=== PATIENT | male | born 1980 | race Caucasian/White ===

== ENCOUNTER 2023-06-06 08:50 | Outpatient (OUT) | payer BC, SELFPAY ==
[2023-06-06 09:50] LABS: Estimated Average Glucose 91 mg/dL; Glycohemoglobin A1C 4.8 % (4.5-6.2)
[2023-06-06 10:04] LABS: Prostate Specific Antigen Scrn 0.53 ng/mL (<=4.00)
[2023-06-06 10:14] LABS: Basophils Percent Auto 0.4 % (0.2-2.0); Eosinophils Absolute Auto 0.2 10^3/uL (0.0-0.7); Eosinophils Percent Auto 3.1 % (0.9-7.0); Hematocrit 45.2 % (42.0-54.0); Hemoglobin 14.9 g/dL (14.0-18.0); Immature Granulocytes Abs Auto 0.01 10^3/uL (0.00-0.03); Immature Granulocytes Pct Auto 0.2 % (0.0-0.5); Lymphocytes Absolute Auto 1.8 10^3/uL (1.2-3.8); Lymphocytes Percent Auto 35.5 % (20.5-60.0); Mean Corpuscular Hemoglobin 29.7 pg (25.9-34.0); Mean Corpuscular Volume 90.2 fL (80.0-94.0); Mean Platelet Volume 9.8 fL (9.5-13.5); Monocytes Absolute Auto 0.5 10^3/uL (0.3-0.8); Monocytes Percent Auto 9.4 % (1.7-12.0); Neutrophils Absolute Auto 2.7 10^3/uL (1.4-6.5); Neutrophils Percent Auto 51.4 % (43.0-75.0); Platelet Count 243 10^3/uL (150-450); Red Blood Count 5.01 10^6/uL (4.70-6.10); Red Cell Distribution Width 13.3 % (11.0-15.0); White Blood Count 5.2 10^3/uL (4.0-11.0)
[2023-06-06 10:43] LABS: Alanine Aminotransferase 38 U/L (16-63); Albumin Globulin Ratio 1.4; Albumin Level 4.2 g/dL (3.4-5.0); Alkaline Phosphatase 57 U/L (46-116); Aspartate Amino Transferase 27 U/L (15-37); Bilirubin Total 1.6 mg/dL (0.2-1.0); Calcium 9.4 mg/dL (8.5-10.1); Carbon Dioxide 30.3 mmol/L (21.0-32.0); Chloride 105 mmol/L (98-107); Chol HDL Ratio 3.2; Cholesterol 215 mg/dL (<=200); Estimated GFR (African America >60 (>=60); Estimated GFR (Non-African Ame >60 (>=60); Globulin 3.1 g/dL; Glucose 89 mg/dL (74-106); HDL Cholesterol 68 mg/dL (40-60); Potassium 4.3 mmol/L (3.5-5.1); Sodium 142 mmol/L (136-145); Total Protein 7.3 g/dL (6.4-8.2); Triglycerides 31 mg/dL (<=150); VLDL CHOLESTEROL 6.2 mg/dL
[2023-06-07 12:07] LABS: Insulin 5.9 uIU/mL (2.6-24.9)
== END 2023-06-06 08:51 | disposition home or self-care (01) ==
PROVIDERS: PCP Family Medicine; Visit Provider Family Medicine
DX: Z00.00 Encounter for general adult medical examination without abnormal findings (principal); E78.5 Hyperlipidemia, unspecified; R73.09 Other abnormal glucose; Z12.5 Encounter for screening for malignant neoplasm of prostate
CPT/HCPCS: 36415; 80053; 80061; 83036; 83525; 84153; 85025; G0103

== ENCOUNTER 2025-01-21 08:53 | Outpatient (OUT) | payer BC, SELFPAY ==
--- OUTSIDE RECORDS SUMMARY | 2024-01-06 09:30 | XMS_ITS ---
Author Organization The [facility] in [place] Address [address] [place] [address] Care Team Providers Care Group Rooms Coordinator Name Role Phone Ted Matos Primary Care Provider [phone] REASON FOR VISIT wants referral to sleep study Encounters Encounter Location Date Provider Diagnosis [facility] [address] [place] [address] 01/06/2024 Ted Matos Plan Of Treatment No Information Progress Notes * Angel SALAZARDOB:1980 (44 yo M)Acc No.[id number]:01/06/2024 UNLOCKED PROGRESS NOTE Progress Note Patient: Angel KASPER :?Jude Matos ([facility]), MDDOB:1980???Age: 43 Y???Sex:MaleDate:4Phone:[phone]:[address], [place], [place] Subjective: * Chief Complaints: * 1 . Wants referral to sleep study. * Medical History: Objective: * Vitals: Assessment: Plan: * Treatment: * * Electronic signature of Ted Matos MD, [id number] on 01/21/2025 at 08:55 AM EST Sign off status: PendingVisit Status:?CANCPHONE (Cancelled Phone) * Provider: Gracy Matos MD ([facility]) Date: 1 03/07/2023 Generated for Printing/Faxing/eTransmitting on:?01/21/2025 08:55 AM EST
--- OUTSIDE RECORDS SUMMARY | 2025-01-16 10:45 | XMS_ITS ---
Author Organization [facility] in [place] Address [address] [place] [address] Care Team Providers Care Nickel Operator Name Role Phone Ted Matos Primary Care Provider [phone] Allergies No Known Allergies REASON FOR VISIT patient is co a fever last week, coughing but even before coughed all the time, sore throat last weekend, did home covid test/flu test was neg, burning in the chest, heart racing at times, no energy , issues swallowing, gasping for air while sleeping at night,, lots of joint issues, pains, is asking for an EKG Medications Medication SIG (Take, Route, Frequency, Duration) Notes Start Date End Date Status Oxaprozin 600 MG 2 tablets Orally once daily; Du ration: 90 days Not-TakingFlonase Allergy Relief 50 MCG/ACT1 spray in each nostril Nasally Once a day; Duration: 30 daysNot-Taking Social History Tobacco Use: Social History Observation Description Date Details (start date - stop date) Never Smoker NA - NA Tobacco Use/Smoking Question Answer Notes Patient is a nonsmoker AUDIT-C (Standard) Question Answer Notes Did you have a drink containing alcohol in the p ast year? No Nwqzog5EstunaujysjqttAbsqjceu Vital Signs Weight 235 lbs 01/16/2025 Height 70 in 01/16/2025 Blood pressure systolic 130 mm Hg 01/17/20 25 Blood pressure diastolic 88 mm Hg 025 BMI 33.72 kg/m2 01/16/2025 Procedures Procedure Date Ordered Date Performed Result Body Sit e EKG w Interp & Report - performed 01/16/2025 N/ASleep Study: Retitration BIPAP/CPAP01/16/2025N/A Encounters Encounter Location Date Provider Diagnosis [facility] [address] [place] [address] 01/16/2025 Ted Hoy Palpitations R00.2 ; Snoring R06.83 ; Well adult Z00.00 and Chest pain R07.9 Assessments Encounter Date Diagnosis (ICD Code) Assessment Notes Treatment Notes Treatment Clinical Notes Section Notes 01/16/2025 Palpitations (ICD-10 - R00.2) needs Stress test - + FH CAD -01/16/2025Snoring (ICD-10 - R06.83)needs sleep stucy103/18/2024Well adult (ICD-10 - Z00.00)01/16/2025hest pain (ICD-10 - R07.9) 01/16/2025Other Discussed increasing physical exercise and continuing/implementing a healthier diet. Plan Of Treatment Treatment Notes Assessment Notes Palpitations needs Stress test - + FH CAD - Snoring needs sleep stucy Other Discussed increasing physical exercise and continuing/implementing a healthier diet. Pending Test Test Name Order Date HEMOGLOBIN A1C (GLYCO) 01/16/2025 INSULIN, TOTAL 01/16/2025 LIPID PANEL (CHOL/TRIG/HDL/LDL) 01/17/20 25 URIC ACID 01/16/2025 EKG w Interp & Report - performed 2024 RHEUMATOID PANEL 01/16/2025 Sleep Study: Retitration BIPAP/CPAP 12/31 Treadmill Stress Test with Nuclear Imagi ng 01/16/2025 STOOL OCCULT BLOOD 01/16/2025 MRI Hip Arthrogram w/ Contrast Left 12/31 SED RATE WESTERGREN 01/16/2025 THYROID PANEL (T4/TSH/FREE T3) XR HIP RT 2 3V W PELVIS 01/16/2025 PSA, SCREENING 01/16/2025 CMP (COMP MET MANUEL) w/eGFR CKD-EPI 2024 CBC WITH DIFF 01/16/2025 Progress Notes * Angel NICKDOB:1980 (44 yo M)Acc No.[id number]:01/16/2025 Progress Note Patient: Lucie SYKESAngel :?Jude Matos ([facility]), MDDOB:1980???Age: 44 Y???Sex:MaleDate:01/16/2025Phone:[phone]:[address] , [place], [place]Ebtlr In:03:44 PM ESTCheck Out:04:44 PM EST Subjective: * Chief Complaints: * P atient is co a fever last week, coughing but even before coughed all the time, sore throat last weekend, did home covid test/flu test was neg, burning in the chest, heart racing at times, no energy , issues swallowing, gasping for air while sleeping at night,lots of joint issues, pains, is asking for an EKG * HPI: ???General:? Chest pain - and getting palpitation Coughing a bunch - swallow eval daytime fatigue and snoring, pauses breathing?- needs sleep study. ???Chest Pain:?The patient complains of?chest pain.?The symptoms have been present for?1-2 days .?The symptoms are?mild.?Symptomatic treatment has included?none.?Associated symptoms include?fatigue, chest tightness.? * ROS: ???General/Constitutional:?Lightheadedness?denies.?Change in appetite?denies.?Weight Change?denies.?Cardiovascular:?Irregular heartbeat?denies.?Swelling in hands/feet denies.?Respiratory:?Shortness of breath?denies.?Shortness of breath at res t?denies.?Wheezing?denies.?Neurologic:?Dizziness?denies.?Fainting?denies.?Headache denies.? * Active Problem List U07.1 COVID-19 Modified On:03/24/2023W/U Status:jbrinvzagA79.00Well adult Modified On:05/25/2023W/U Status:wfpyksryeW09.419AHand laceration Modified On:12/04/2023/U Status:ceygfkdvsV58.9GERD (gastroesophageal reflux disease) Modified On:01/17/2025/U Status:confirmed * Medical History: * Surgical History: N o Surgical History documented. * Hospitalization/Major Diagno stic Procedure: N o Hospitalization History. * Family History: F ather: alive, diagnosed with Diabetes, Hypertension, Heart Disease. M other: alive, diagnosed with Cancer, Diabetes, Hypertension, Heart Disease. B rother(s): alive. S ister(s): alive. 1 brother(s) , 2 sister(s) . 2 son(s) , 1 daughter(s) - healthy. . * Social History: ???Tobacco Use:?Tobacco Use/Smoking?Patient is a?nonsmoker ???Drug/Alcohol:?AUDIT-C (Standard)?Did you have a drink containing alcohol in the past year??No ?Points?0 ?Interpretation?Negative * Medications: N ot-Taking/PRNFlonase Allergy Relief(Fluticasone Propionate) 50 MCG/ACT Suspension 1 spray in each nostril Nasally Once a day Oxaprozin 600 MG Tablet 2 tablets Orally once daily Medication List reviewed and reconciled with the patientNot- Taking/PRN Flonase Allergy Relief(Fluticasone Propionate) 50 MCG/ACT Suspension 1 spray in each nostril Nasally Once a day Not-Taking/PRN Oxaprozin 600 MG Tablet 2 tablets Orally once daily Medication List reviewed and reconciled with the patient * Allergies: N .K.D.A.no[Allergies Verified] Objective: * Vitals: W t:235lbs, Ht: 70 in, BP:130/88mm Hg, BMI:33.72Index, Ht-cm: 177.8 cm, Wt-k.6 kg. * Examination: ???General Examination: ?GENERAL APPEARANCE:? in no acute distress, well developed,well nourished.?LUNGS:? clear to auscultation bilaterally.?CARDIO:? S1, S2 normal, no murmurs, rubs, gallops.?EXTREMITIES:? no clubbing, cyanosis, or edema.?NEUROLOGIC:? alert, oriented to time, place, & person. ??? Assessment: * Assessment: 1.?Palpitations - R00.2 (Primary)???2.?Snoring - R06.83???3.?Well adult - Z00.00???4.?Chest pain - R07.9??? Plan: * Treatment: ?LAB: RHEUMATOID PANEL ?LAB: SED RATE WESTERGREN ?Imaging: XR HIP RT 2 3V W PELVIS ?Procedure: EKG w Interp & Report - performed ?Procedure: Sleep Study: Retitration BIPAP/CPAP Notes: needs Stress test - + FH CAD - ??2.?Snoring? Notes: needs sleep stucy??3.?Well adult?LAB: HEMOGLOBIN A1C (GLYCO) ?LAB: INSULIN, TOTAL ?LAB: LIPID PANEL (CHOL/TRIG/HDL/LDL) ?LAB: URIC ACID ?LAB: STOOL OCCULT BLOOD ?LAB: THYROID PANEL (T4/TSH/FREE T3) ?LAB: PSA, SCREENING ?LAB: CMP (COMP MET MANUEL) w/eGFR CKD-EPI ?LAB: CBC WITH DIFF ?Imaging: MRI Hip Arthrogram w/ Contrast Left* hip pain - after fall - Righ t hip 4.?Chest pain?Imaging: Treadmill Stress Test with Nuclear Imaging5.?Others? Notes:Discussed increasing physical exercise and continuing/implementing a healthier diet.?? * Procedure Codes: 9 3000 EKG, WINTERP. * Preventive Medicine: ??Screenings/Counseling:?BMI ACTION PLAN?Above Normal BMI Follow-up?Dietary management education, guidance, and counseling * * Sign off status: CompletedVisit Status:?CHK (Check Out) true * Provider: Gracy Matos ([facility])MD Date: 1 03/18/2024 Generated for Printing/Faxing/eTransmitting on:?01/21/2025 08:56 AM EST History and Physical Notes * HPI (History of Present Illness) CategorySub-CategoryDetailNotesCategory NotesChest PainThe patient complains of chest painThe symptoms have been present for1-2 daysThe symptoms aremild Symptomatic treatment has includednoneAssociated symptoms includefatigue, chest tightnessGeneral Chest pain - and getting palpitation Coughing a bunch - swallow eval daytime fatigue and snoring, pauses breathing - needs sleep study Examination CategorySub-CategoryDetailNotesCategory NotesGeneral ExaminationGENERAL APPEARANCE:in no acute distress, well developed, well nourishedCARDIO:S1, S2 normal, no murmurs, rubs, gallopsLUNGS:clear to auscultation bilaterally NEUROLOGIC:alert, oriented to time, place, & personEXTREMITIES:no clubbing, cyanosis, or edema
--- OUTSIDE RECORDS SUMMARY | 2025-01-16 11:32 | XMS_ITS ---
Author Organization The [facility] in [place] Address [address] [place] [address] Care Team Providers Care Corporate Security Manager Name Role Phone Ted Matos Primary Care Provider Reason For Referral Diagnosis 1 GERD (gastroesophage al reflux disease) (K21.9) Referral Organization [facility] Referring Provider First Name Ted Referring Provider Last Name Carlo Referring Provider Speciality Family Med shereen Referred Provider Joni Mojica Referred Provider Specialty General Surg anuradha Referral Priority Routine REASON FOR VISIT look in [facility] for UGI Medications Medication SIG (Take, Route, Frequency, Duration) Notes Start Date End Date Status Pantoprazole Sodium 40 MG 1 tablet 1/2 t o 1 hour before morning meal Orally Once a day; Duration: 30 days 01/17/2025tive Problems Problem Type SNOMED Code ICD Code Onset Dates Problem Status W/U Status Risk Notes Problem Gastroesophageal ref lux disease (603182177) GERD (gastroesophageal reflux disease) (K21.9) Activeconfirmed Encounters Encounter Location Date Provider Diagnosis [facility] [address] [place] [address] 01/16/2025 Ted Matos GERD (gastroesophage al reflux disease) K21.9 Assessments Encounter Date Diagnosis (ICD Code) Assessment Notes Treatment Notes Treatment Clinical Notes Section Notes 01/16/2025 GERD (gastroesophageal reflux di sease) (ICD-10 - K21.9) Plan Of Treatment Medication Medication Name Sig Start Date Stop Date Notes Pantoprazole Sodium 40 MG 1 tablet 1/2 t o 1 hour before morning meal Orally Once a day; Duration: 30 days 01/17/2025 Referrals Referral Date Details 01/17/2025 01/17/2025, Joni Mojica Progress Notes * Angel SALAZARDOB:1980 (44 yo M)Acc No.[id number]:01/16/2025 Patient:?Angel SALAZAR :1980???Age:44 Y???Sex:MalePhone:[phone] Address:[address] [place] [address], [address] * Refills Start Pantoprazole Sodium Tablet Delayed Release, 40 MG, Orally, 30 Tablet, 1 tablet 1/2 to 1 hour before morning meal, Once a day, 30 days, Refills=11 Subjective: * Chief Complaints: * l ook in [facility] for UGI * Medical History: * Surgical History: * Hospitalization/Major Diagno stic Procedure: * Medications: Objective: * Vitals: * Physical Examination: ??? Assessment: * Assessment: 1.?GERD (gastroesophageal reflux disease) - K21.9 (Primary)??? Plan: * Treatment: ? Referral To:Joni Mojica??General Surgery ?Reason: 2.?Others? Start Pantoprazole Sodium Tablet Delayed Release, 40 MG, 1 tablet 1/2 to 1 hour before morning meal, Orally, Once a day, 30 days, 30 Tablet, Refills 11.?? * Procedure Codes: * true * Date:?Generated for Printing/Faxing/eTransmitting on:?01/21/2025 08:55 AM EST Consultation Request Notes Referral Date Referring Provider Referred Provider Not ariadna 01/17/2025 Ted Matos Michael
--- OUTSIDE RECORDS SUMMARY | 2025-01-21 08:56 | XMS_ITS | Patient Health Record ---
Author Organization The [facility] in [place] Address [address] [place] [address] Care Team Providers Care Chief General [facility] Name Role Phone Carlo Ted Primary Care Provider Allergies No Known Allergies Reason For Referral Diagnosis 1 GERD (gastroesophage al reflux disease) (K21.9) Referral Organization [facility] Referring Provider First Name Ted Referring Provider Last Name Carlo Referring Provider Speciality Family Med shereen Referred Provider Joni Mojica Referred Provider Specialty General Surg anuradha Referral Priority Routine Medications Medication SIG (Take, Route, Frequency, Duration) Notes Start Date End Date Status Pantoprazole Sodium 40 MG 1 tablet 1/2 t o 1 hour before morning meal Orally Once a day; Duration: 30 days 5ActiveOxaprozin 600 MG2 tablets Orally once daily; Duration: 90 days Not-TakingFlonase Allergy Relief 50 MCG/ACT1 spray in each nostril Nasally Once a day; Duration: 30 daysNot-Taking Social History Tobacco Use: Social History Observation Description Date Details (start date - stop date) Never Smoker NA - NA Tobacco Use/Smoking Question Answer Notes Patient is a nonsmoker Alcohol Screen (Audit-C) Question Answer Notes Did you have a drink containing alcohol in the p ast year? Yes How many drinks did you have on a typical day when you were drinking in the past year?3 or 4 drinks (1 point)How often did you have a drink containing alcohol in the past year?Less than monthly (1 point)Sfhsnl9ViwyovcudggyijIqjofgzsSCKGL-G (Standard) Question Answer Notes Did you have a drink containing alcohol in the p ast year? No Kyuydh3VpptatznoowvzkBrmjmadr Problems Problem Type SNOMED Code ICD Code Onset Dates Problem Status W/U Status Risk Notes Problem Gastroesophageal ref lux disease (861150291) GERD (gastroesophageal reflux disease) (K21.9) ActiveconfirmedProblemWell adult (833506441)Well adult (Z00.00)Activeconfirmed ProblemHand laceration (S61.419A)ActiveconfirmedProblemCOVID-19 (990732863) COVID-19 (U07.1)Activeconfirmed Vital Signs Blood pressure diastolic 88 mm Hg 01/16/2025 Fimccb23 in01/16/2025lood pressure mm Hg01/16/20259992Doeoci101 lbs 01/16/2025BMI33.72 kg/m201/16/2025 Procedures Procedure Date Ordered Date Performed Result Body Sit e EKG w Interp & Report - performed 01/16/2025 N/ASleep Study: Retitration BIPAP/CPAP01/16/2025N/A Encounters Encounter Location Date Provider Diagnosis [facility] [address] [place] [address] 01/16/2025 Ted Matos GERD (gastroesophage al reflux disease) K21.9 [facility] [address] [place] [address] 01/17/2025 Ted Hoy [facility] [place] [address] 01/18/2025[facility] [place] [address]/17/2025Doug HoyPalpitations R00.2 ; Snoring R06.83 ; Well adult Z00.00 and Chest pain R07.9 Assessments Encounter Date Diagnosis (ICD Code) Assessment Notes Treatment Notes Treatment Clinical Notes Section Notes 01/16/2025 Palpitations (ICD-10 - R00.2) needs Stress test - + FH CAD -01/16/2025Snoring (ICD-10 - R06.83)needs sleep stucy103/18/2024Well adult (ICD-10 - Z00.00)01/16/2025GERD (gastroesophageal reflux disease) (ICD-10 - K21.9)5Chest pain (ICD-10 - R07.9)01/16/2025 Other Discussed increasing physical exercise and continuing/implementing a healthier diet. Plan Of Treatment Pending Test Test Name Order Date CMP (COMPLETE METABOLIC PANEL) 4 HEMOGLOBIN A1C (GLYCO) 05/25/2023 HEMOGLOBIN A1C (GLYCO) 01/16/2025 INSULIN, TOTAL 01/16/2025 INSULIN, TOTAL 05/25/2023 LIPID PANEL (CHOL/TRIG/HDL/LDL) 01/17/20 LIPID PANEL (CHOL/TRIG/HDL/LDL) 05/25/19 24 CBC WITH DIFF 05/25/2023 PSA, PROSTATE-SPECIFIC ANTIGEN 4 URIC ACID 01/16/2025 EKG w Interp & [...] w/eGFR CKD-EPI 2024 CBC WITH DIFF 01/16/2025 Insurance Providers Payer Name Payer Address Payer Phone Subscriber Number Group Number Insured Name Patient Relationship to Insured Coverage Start Date Coverage End Date YESI LEWIS [address] [place] [address] [id number] Chula Salazar - patient is the insured
--- OUTSIDE RECORDS SUMMARY | 2025-01-21 08:56 | XMS_ITS | Clinical Summary ---
Author Organization [facility] Address [address], [address] [place] [address] Care Team Providers Care Gun Stocker Name Role Phone Jude Matos MD Primary Care Provider [phone] Allergies No known active allergies Immunizations ImmunizationAdministration DatesNext DueTDaP, ADACEL (age 10y-64y), BOOSTRIX (age 10y+), IM, 0.5mL11/26/2023 Social History Tobacco UseTypesPacks/DayYears UsedDateSmoking Tobacco: NeverSmokeless Tobacco: Never Tobacco Cessation:Counseling Given: Not Answered Alcohol UseStandard Drinks/WeekCommentsNever0 (1 standard drink = 0.6 oz pure alcohol)Sex and Gender InformationValueDate RecordedSex Assigned at BirthNot on fileLegal QkrJncw0804/11/2012 5:12 PM ESTGender IdentityNot on fileSexual OrientationNot on file Last Filed Vital Signs Vital SignReadingTime TakenCommentsBlood Yvbtnkyd045/9609 11:33 AM EDT Aatah541311/26/2023 11:33 AM HSGWydcgkwmzvo44.2 ??C (97.2 ??F)11/26/2023 11:33 AM EDTRespiratory Qbzj887211/26/2023 11:33 AM EDTOxygen Ltssrrmbln852%11/26/2023 11:33 AM EDTInhaled Oxygen Concentration--Awxbsc06.5 kg (215 lb)11/26/2023 11:33 AM XAXRpmido908.8 cm (5' 10 )11/26/2023 11:33 AM EDTBody Mass Index30.85 11/26/2023 11:33 AM EDT Plan of Treatment Health MaintenanceDue DateLast DoneCommentsFlu vaccine (#1)09/30/2024OVID-19 Vaccine (1 - 2023- season)2024DTaP/Tdap/Td vaccine (2 - Td or Tdap) olio vaccineAged OutNo longer eligible based on patient's age to complete this topic Insurance Care Teams Team MemberRelationshipSpecialtyStart Date Jude Matos MD [address] [place] [address] PCP - GeneralFamily Medicine11/26/23
--- OUTSIDE RECORDS SUMMARY | 2025-01-21 08:56 | XMS_ITS | Clinical Summary ---
Author Organization [facility] Address [address] [place] [address] Care Team Providers Care Manager Cost Name Role Phone Jude Matos MD Primary Care Provider [phone] Allergies No known active allergies Medications MedicationSigDispense QuantityRefillsLast FilledStart DateEnd DateStatus oxaprozin (Daypro) 600 MG tablet Take 1,200 mg by mouth DailyActive Family History Medical HistoryRelationNameCommentsHeart diseaseFatherCancerMotherBreastDiabetes MotherHeart diseaseMotherStrokePaternal GrandmotherRelationNameStatusComments FatherMotherPaternal Grandmother Social History Tobacco UseTypesPacks/DayYears UsedDateSmoking Tobacco: NeverSmokeless Tobacco: Never Tobacco Cessation:Counseling Given: Not Answered Alcohol UseStandard Drinks/WeekCommentsYes0 (1 standard drink = 0.6 oz pure alcohol)Sex and Gender InformationValueDate RecordedSex Assigned at BirthNot on fileLegal AviOfnn7805/14/2022 6:52 PM EDTGender IdentityNot on fileSexual OrientationNot on file Last Filed Vital Signs Vital SignReadingTime TakenCommentsBlood Pressure--Pulse--Temperature-- Respiratory Rate--Oxygen Saturation--Inhaled Oxygen Concentration--Doeehg68.5 kg (215 lb)02/08/2024 4:12 PM LDIAoasez649.8 cm (5' 10 )02/08/2024 4:12 PM ESTBody Mass Index30.8502/08/2024 4:12 PM EST Plan of Treatment Not on file Insurance * Guarantor: Angel Salazar TypeRelation to PatientDate of PhoneBilling AddressPersonal/QfursmTeuh12/07/[address] [address] Care Teams Team MemberRelationshipSpecialtyStart Date Jude Matos MD PCP - GeneralFamily Medicine09/22/23
[2025-01-21 09:56] LABS: Hematocrit 46.0 % (42.0-54.0); Hemoglobin 15.8 g/dL (14.0-18.0); Immature Granulocytes Abs Auto 0.03 10^3/uL (0.00-0.03); Immature Granulocytes Pct Auto 0.6 % (0.0-0.5); Lymphocytes Absolute Auto 1.6 10^3/uL (1.2-3.8); Mean Corpuscular HGB Conc 34.3 g/dL (29.9-35.2); Mean Corpuscular Hemoglobin 31.1 pg (25.9-34.0); Mean Corpuscular Volume 90.6 fL (80.0-94.0); Platelet Count 244 10^3/uL (150-450); Red Blood Count 5.08 10^6/uL (4.70-6.10); White Blood Count 5.4 10^3/uL (4.0-11.0)
[2025-01-21 11:16] LABS: Alanine Aminotransferase 44 U/L (16-63); Albumin Globulin Ratio 1.2; Albumin Level 3.9 g/dL (3.4-5.0); Alkaline Phosphatase 67 U/L (46-116); Anion Gap 10.9; Aspartate Amino Transferase 20 U/L (15-37); Blood Urea Nitrogen 21.0 mg/dL (7.0-18.0); Calcium 9.0 mg/dL (8.5-10.1); Carbon Dioxide 29.9 mmol/L (21.0-32.0); Chloride 105 mmol/L (98-107); Cholesterol 222 mg/dL (<=200); Estimated GFR (African America >60 (>=60 mL/min/1.73m^2); Estimated GFR (Non-African Ame >60 (>=60 mL/min/1.73m^2); Free T3 3.06 pg/mL (2.18-3.98); Globulin 3.3 g/dL; Glucose 94 mg/dL (74-106); HDL Cholesterol 66 mg/dL (40-60); Potassium 4.8 mmol/L (3.5-5.1); Sodium 141 mmol/L (136-145); Thyroid Stimulating Hormone 3.862 uIU/mL (0.358-3.740); Total Protein 7.2 g/dL (6.4-8.2); Triglycerides 38 mg/dL (<=150); Uric Acid 6.0 mg/dL (3.5-7.2); VLDL CHOLESTEROL 7.6 mg/dL
[2025-01-24 16:10] LABS: Antinuclear Antibodies, IFA Positive (.)
== END 2025-01-21 08:54 | disposition home or self-care (01) ==
LOC: LAB 08:53
PROVIDERS: PCP Family Medicine; Visit Provider Family Medicine
DX: Z00.00 Encounter for general adult medical examination without abnormal findings (principal); Z12.5 Encounter for screening for malignant neoplasm of prostate; R00.2 Palpitations
CPT/HCPCS: 36415; 80053; 80061; 83036; 83525; 84436; 84443; 84481; 84550; 85025; 85652; 86038; 86060; 86140; 86431; G0103

== ENCOUNTER 2025-03-01 09:02 | Outpatient (OUT) | payer BC, SELFPAY ==
--- OUTSIDE RECORDS SUMMARY | 2024-01-06 09:30 | XMS_ITS ---
Author Organization The [facility] in [place] Address [address] [place] [address] Care Team Providers Care Integration Manager Name Role Phone Ted Matos Primary Care Provider REASON FOR VISIT wants referral to sleep study Encounters Encounter Location Date Provider Diagnosis [facility] [address] [place] [address] 01/06/2024 Ted Matos Plan Of Treatment Next Appt Details Provider Name:Gab White Rafaela ntz, 03/07/2025 01:00:00 PM, [address], [address], [place], [address], Progress Notes * Angel NICKDOB:1980 (44 yo M)Acc No.[id number]:01/06/2024 UNLOCKED PROGRESS NOTE Progress Note Patient: Angel KASPER :?Jude Matos ([facility]), MDDOB:1980???Age: 43 Y???Sex:MaleDate:4Phone:[phone]:[address], [place], [place] Subjective: * Chief Complaints: * 1 . Wants referral to sleep study. * Medical History: Objective: * Vitals: Assessment: Plan: * Treatment: * * Electronic signature of Ted Matos MD, [id number] on 03/01/2025 at 09:04 AM EST Sign off status: PendingVisit Status:?CANCPHONE (Cancelled Phone) * Provider: Gracy Matos ([facility])MD Date: 1 03/07/2023 Generated for Printing/Faxing/eTransmitting on:?03/01/2025 09:04 AM EST
--- OUTSIDE RECORDS SUMMARY | 2025-02-20 11:23 | XMS_ITS | Continuity of Care Document ---
Author Organization [facility] Address [address] [place] [address] Phone Care Team Providers Care Clinical Consultant Name Role Phone Tomasz Mendieta APRN Attending Provider Jude Matos MD Primary Care Provider [phone] Care Teams Patient Care Team Team Status: Active Member Role/Relationship Status Dates Jude Matos MD Primary Care Provider Active Patient Care Team Team Status: Inactive Member Role/Relationship Status Dates Tomasz Mendieta APRN Attending Provider Active Start: February 20, 2025 End: February 20, 2025DoRupesh Rushing Care ProviderActiveStart: February 20, 2025 End: February 20, 2025 Chief Complaint and Reason for Visit Chief Complaint Admit Date trouble swallowing February 20, 2025 3:30pm Reason for Visit Admit Date Cough February 20, 2025 3:30pm Dysphagia February 20, 2025 3:30pm Allergies, Adverse Reactions, Alerts Allergen Type Severity Reaction Last Updated Verified Status No Known Allergies Allergy Unknown February 20, 2025 3:46pmYesActive Social History Smoking Status Unknown if ever smoked Observation Status Observation Response Date of Response Legal Sex Male (finding) Sex Assigned At [facility] 1980 Problems Active Problems Problem Diagnosis/Recorded Date Onset Date Stat us Cough February 20, 2025 3:45pm Unknown A ctive Dysphagia February 20, 2025 3:42pm Unknown A ctive Medications Medication Status Dose Units Route Directions Qty Days Refills S tart Date Stop Date End Date Reason(s) Instructions Adherence Tamsulosin (Flomax) 0.4 mg capsule Discontinued 0.4 MG PO Daily February 20, 2025 12:00amDecember 2024 4:09pmFluticasone Propionate 50 mcg/actuation spray,ltlohxaipoDmssvz8NTDXVLBCTOCTHGAYnrjzJqbyoamo 22nd, 2025 12:00amadminister into each nostrilUnknown Vital Signs Vital Reading Result Reference Range Collection Date/Time Height 70 [in_i] February 20, 2025 3:29cvMghyuc01.79 kgDeceer 2024 3:47pmHeart Rate72 /nvc88-891KzaiknhqFebruary 20, 2025 3:47pmBP Ntyawidq378 mm[Hg]100-140Dece2024 3:47pmBP Fqdzyiadq71 mm[Hg]60-100Deceer 2024 3:47pmBMI (Body Mass Index)31.5 kg/u9NzwpcisiFebruary 20, 2025 3:47pm Advance Directives Advance Directive Response Recorded Date/ Time Advance Directives No January 3:45pm Insurance Providers Guarantor Angel Salazar Address [address] [address]Tbseveu Info.Home Phone: Coverage Status Update:2025 Payer Group Member ID Coverage Type Subscriber Relationship to Subscriber Effective Date Expiration Date Yan KWON [id number] R Hemvamsi Id: [id number] [id number] [facility] [address] Home Phone: Self Encounters Encounter Location(s) Arrival/Admit Date Discharge/Departure Date Discharge/Departure Disposition Provider(s) Departed Physician/ Provider Office Visit -[facility] February 20, 2025 3:30pm February 20, 2025 4:21pm Discharged to home care or self care (routine discharge) Katie Tamez CERTIFIED NOVELL ADMINISTRATOR Recent Diagnosis Onset Date Admit Date Cough Unknown February 20, 2 025 3:30pm Dysphagia Unknown February 20 2 025 3:30pm Assessments Diagnosis Onset Date Resolution Status Admit Date Cough acuteDece2024 3:30pmDysphagiaacuteDecember 2024 3:30pm
--- OUTSIDE RECORDS SUMMARY | 2025-02-27 03:28 | XMS_ITS ---
Author Organization [facility] [place] Address [address] [place] [address] Care Team Providers Care Music Assistant Name Role Phone Ted Matos Primary Care Provider REASON FOR VISIT Referral/labs Problems Problem Type SNOMED Code ICD Code Onset Dates Problem Status W/U Status Risk Notes Problem Hypercalcemia (52856182) Hypercalcemia (E 83.52) Activeconfirmed Encounters Encounter Location Date Provider Diagnosis [facility] [address] [facility] [place] [address] 02/27/2025 Ted Matos Hypercalcemia E83.5 2 and Thyroid lump E07.9 Assessments Encounter Date Diagnosis (ICD Code) Assessment Notes Treatment Notes Treatment Clinical Notes Section Notes 02/27/2025 Hypercalcemia (ICD-10 - E83.52) 02/27/2025Thyroid lump (ICD-10 - E07.9) Plan Of Treatment Pending Test Test Name Order Date CALCIUM, IONIZED 02/27/2025 US THYROID 02/27/2025 Next Appt Details Provider Name:Gab navarro, 03/07/2025 01:00:00 PM, [address], [place], [address], Progress Notes * PARKAngelDOB:1980 (44 yo M)Acc No.[id number]:02/27/2025 Patient:?Angel NICK :1980???Age:44 Y???Sex:MalePhone:[phone] Address:[address] [place] [address], [address] Subjective: * Chief Complaints: * R eferral/labs * Medical History: * Surgical History: * Hospitalization/Major Diagno stic Procedure: * Medications: Objective: * Vitals: * Physical Examination: ??? Assessment: * Assessment: 1.?Hypercalcemia - E83.52 (Primary)???2.?Thyroid lump - E07.9?? Plan: * Treatment: ?LAB: CALCIUM, IONIZED2.?Thyroid lump?Imaging: US THYROID * Procedure Codes: * true * Date:?Generated for Printing/Faxing/eTransmitting on:?03/01/2025 09:04 AM EST
--- OUTSIDE RECORDS SUMMARY | 2025-03-01 09:05 | XMS_ITS | Patient Health Record ---
Author Organization [facility] [place] Address [address] [place] [address] Care Team Providers Care Content Strategy Lead Name Role Phone Raul Matos Primary Care Provider Allergies No Known Allergies Results Component Value Reference Range Notes Erythrocyte Sedimentation Ra te Reviewed date:01/21/2025 08:09:42 PM Interpretation: Performing Lab: Notes/Report: [facility] , Erythrocyte Sedimentation Rate 4 <=15 mm/hr Performing Lab:see noteML - [facility] LBCBC AUTO DIFF Reviewed date:01/21/2025 08:09:42 PM Interpretation: Performing Lab: Notes/Report: [facility] ,White Blood Count5.44.0-11.0 10 3/uLRed Blood Count5.084.70-6.10 10 6/uL Zadjdpaxil99.814.0-18.0 g/zRHawfewbuyo71.042.0-54.0 %Mean Corpuscular Ymlgzw35.6 80.0-94.0 fLMean Corpuscular Tjkmformta31.125.9-34.0 pgMean Corpuscular HGB Conc 34.329.9-35.2 g/dLRed Cell Distribution Width12.911.0-15.0 %Platelet Ekpmi078 150-450 10 3/uLMean Platelet Volume9.59.5-13.5 fLNeutrophils Percent Auto57.6 43.0-75.0 %Lymphocytes Percent Auto28.820.5-60.0 %Monocytes Percent Auto9.61.7- 12.0 %Eosinophils Percent Auto3.00.9-7.0 %Basophils Percent Auto0.40.2-2.0 % Immature Granulocytes Pct Auto0.60.0-0.5 %Neutrophils Absolute Auto3.11.4-6.5 10 3/uLLymphocytes Absolute Auto1.61.2-3.8 10 3/uLMonocytes Absolute Auto0.50.3-0.8 10 3/uLEosinophils Absolute Auto0.20.0-0.7 10 3/uLBasophils Absolute Auto0.00.0- 0.1 10 3/uLImmature Granulocytes Abs Auto0.030.00-0.03 10 3/uLPerforming Lab:[facility] LBINSULIN Reviewed date:01/22/2025 06:10:50 PM Interpretation: Performing Lab: Notes/Report: [facility] ,Insulin6.52.6-24.9 uIU/mL Performed at: [place] [address] Bingo Usher: Jose Angel Francis PhD, Phone: [employer] Performing Lab[facility] LBAntistreptolysin O Ab Reviewed date:01/24/2025 04:15:23 PM Interpretation: Performing Lab: Notes/Report: [facility] ,Antistreptolysin O Ab70.80.0-200.0 IU/mL Performed at: [address] [id number] Bingo Usher: Jose Angel Francis PhD, Phone: [phone] Performing Lab:[facility] LBRHEUMATOID FACTOR Reviewed date:01/24/2025 04:15:23 PM Interpretation: Performing Lab: Notes/Report: [facility] ,Rheumatoid Factor (RF)<10.0<14.0 IU/mLPerforming Lab:[facility] note[facility] LBANA by IFA Reviewed date:01/24/2025 04:15:23 PM Interpretation: Performing Lab: Notes/Report: [facility] ,Antinuclear Antibodies, IFAPositive. Negative <1:80 Borderline 1:80 Positive >1:80 Homogeneous PatternTNP.Nucleolar PatternTNP.Speckled Pattern1:640. Dense Fine Speckled pattern is noted. This pattern suggests the presence of DFS70 antibody which has a low prevalence in systemic autoimmune rheumatic diseases. ICAP nomenclature: AC-2,4,5,29 Centromere PatternTNP.Spindle Apparatus PatternTNP.Nuclear Membrane PatternTNP. Midbody PatternTNP.Nuclear Dot PatternTNP.PCNA PatternTNP.Centriole PatternTNP. Note:Comment. Pattern Potential Disease Association Homogeneous Systemic Lupus Erythematosus, Drug Induced Systemic Lupus Erythematosus, Chronic Autoimmune hepatitis, Juvenile Idiopathic Arthritis Speckled Sjogren Syndrome, Systemic Lupus Erythematosus, Subacute Cutaneous Lupus, Lupus, Congenital Heart Block, Mixed Connective Tissue Disease, Scleroderma-diffuse, Scleroderma-Autoimmune Myositis Overlap Syndrome, Systemic Lupus Diofklyvngvfh-Ttkcdlioffs-Tjfemyqkcc Myositis Overlap Syndrome, Systemic Autoimmune Rheumatic Disease, Undifferentiated Connective Tissue Disease Nucleolar Systemic Sclerosis, Scleroderma-Autoimmune Myositis Overlap Syndrome, Sjogren Syndrome, Raynaud phenomenon, Pulmonary Arterial Hypertension, Systemic Autoimmune Rheumatic Disease, Cancer Centromere Scleroderma-CREST, Limited Cutaneous SSc, Raynaud's Phenomenon, Primary Biliary Cholangitis Nuclear Dot Primary Biliary Cholangitis Nuclear Primary Biliary Cholangitis, Autoimmune Membrane Hepatitis/Liver disease, Systemic Autoimmune Rheumatic Disease, Autoimmune Cytopenias, Linear Scleroderma, Antiphospholipid Syndrome Performed at: [facility] [address] [id number] Bingo Usher: Jose Angel Francis PhD, Phone: [phone] Performing Lab:[facility] LBURIC ACID SERUM Reviewed date:01/21/2025 08:09:42 PM Interpretation: Performing Lab: Notes/Report: [facility] ,Uric Acid6.03.5-7.2 mg/dLPerforming Lab:see noteML - [facility] LB TSH Reviewed date:01/21/2025 08:09:42 PM Interpretation: Performing Lab: Notes/Report: [facility] ,Thyroid Stimulating Hormone3.8620.358-3.740 uIU/mLPerforming Lab:see noteML - [facility] LBT4 Reviewed date:01/21/2025 08:09:42 PM Interpretation: Performing Lab: Notes/Report: [facility] ,T4 Thyroxine5.704.50-12.10 ug/dLPerforming Lab:see noteML - [facility] LBPSA SCREENING Reviewed date:01/21/2025 08:09:42 PM Interpretation: Performing Lab: Notes/Report: [facility] ,Prostate Specific Antigen Scrn0.49<=4.00 ng/mLPerforming Lab:see noteML - [facility] LBPROF 14(COMP METB) Reviewed date:01/21/2025 08:09:42 PM Interpretation: Performing Lab: Notes/Report: [facility] ,Qdrcsz529684-826 mmol/LPotassium4.83.5-5.1 mmol/YMavhksym16910-410 mmol/LCarbon Rswvjoa95.921.0-32.0 mmol/LAnion Gap10.4Owiudlg3217-386 mg/dLBlood Urea Nitrogen 21.07.0-18.0 mg/dLCreatinine1.140.70-1.30 mg/dLEstimated GFR ( Lanie>60 >=60 mL/min/1.73m 2Estimated GFR (Non- Evangelina>60>=60 mL/min/1.73m 2BUN Creatinine Ratio18.2Eprxyiw3.08.5-10.1 mg/dLBilirubin Total1.50.2-1.0 mg/dL Aspartate Amino Dhqqwqognia4350-12 U/LAlanine Rwacsxsxxhjwmtyg1763-89 U/L Alkaline Xxgzdnbcxcn3143-327 U/LTotal Protein7.26.4-8.2 g/dLAlbumin Level3.93.4- 5.0 g/dLGlobulin3.3Albumin Globulin Ratio1.2Performing Lab:see note - [facility] LBLIPID PROFILE Reviewed date:01/21/2025 08:09:42 PM Interpretation: Performing Lab: Notes/Report: [facility] ,Audhbicomnktm87<=150 mg/uLNcsmbxwpwlw841<=200 mg/dLHDL Eipqioufpfo9912-99 mg/dL > or =60 mg/dl - LOW CARDIOVASCULAR RISK <40 mg/dl - HIGH CARDIOVASCULAR RISK LDL Cholesterol Doolwiikzl048.0 <100 mg/dl OPTIMAL 100-129 mg/dl NEAR OR ABOVE OPTIMAL 130-159 mg/dl BORDERLINE HIGH 160-189 mg/dl HIGH >190 mg/dl VERY HIGH VLDL CHOLESTEROL7.6Chol HDL Ratio3.4 3.3 - 4.4 LOW RISK 4.4 - 7.1 AVERAGE RISK 7.1 - 11.0 MODERATE RISK >11.0 HIGH RISK Performing Lab:see note - [facility] LBGLYCOHEMOGLOBIN A1C Reviewed date:01/21/2025 08:09:42 PM Interpretation: Performing Lab: Notes/Report: [facility] ,Glycohemoglobin A1C5.14.5-6.2 % ADA RECOMMENDED LIMIT 4.0 - 6.0 ADA THERAPEUTIC TARGET < 7.0 ACTION SUGGESTED > 7.0 Estimated Average Vezbfhf234Vpyljlbyxf Lab:see noteML - [facility] LB FREE T3 Reviewed date:01/21/2025 08:09:42 PM Interpretation: Performing Lab: Notes/Report: [facility] ,Free T33.062.18-3.98 pg/mLPerforming Lab:see noteML - [facility] LB CRP Reviewed date:01/21/2025 08:09:42 PM Interpretation: Performing Lab: Notes/Report: [facility] ,C Reactive Protein<0.50<=0.50 mg/dLPerforming Lab:see noteML - [facility] LB Reason For Referral Diagnosis 1 GERD (gastroesophage al reflux disease) (K21.9) Referral Organization [facility] Referring Provider First Name Raul Referring Provider Last Name Funmi Referring Provider [facility] Referred Provider Joni Mojica Referred Provider Specialty General Surg anuradha Referral Priority Routine Reason Patient wanted 2nd o charley about labs Diagnosis 1 Unspecified abnormal finding in specimens from other organs, systems and tissues (R89.9) Referring Provider First Name RAUL Referring Provider Last Name FUNMI Referring Provider [facility] Referred Organization [facility] [place] Referred Provider Gab Meraz Referred Address [address] [facility] [address] [place] [address],[place], [place],[address], Referred Provider Specialty Rheumatology Referral Priority Routine Reason patient wanted secon d opinion about labs Diagnosis 1 Abnormal laboratory test (R89.9) Referral Organization [facility] Referring Provider First Name Raul Referring Provider Last Name Funmi Referring Provider [facility] Referred Provider Specialty Rheumatology Referral Priority Routine Medications Medication SIG (Take, Route, Frequency, Duration) Notes Start Date End Date Status Pantoprazole Sodium 40 MG 1 tablet 1/2 t o 1 hour before morning meal Orally Once a day; Duration: 30 days 5ActiveAlbuterol Sulfate HFA 108 (90 Base) MCG/ACT2 puff as needed Inhalation every 4 hrs- PRN; Duration: 30 days5ActiveOxaprozin 600 MG2 tablets Orally once daily; Duration: 90 daysNot-TakingFlonase Allergy Relief 50 MCG/ACT1 spray in each nostril Nasally Once a day; Duration: 30 daysNot-Taking Simvastatin 20 MG1 tablet in the evening Orally Once a day; Duration: 90 days 5ActiveZepbound 2.5 MG/0.5ML2.5 Subcutaneous bmyqra175Active Social History Tobacco Use: Social History Observation [...] in the past year?Less than monthly (1 point)Xcesja1GclihhopzdnxkbAdxdgdqyFMWJI-F (Standard) Question Answer Notes Did you have a drink containing alcohol in the p ast year? No Qxezic5KudqzshegohjgaJlcdaovh Problems Problem Type SNOMED Code ICD Code Onset Dates Problem Status W/U Status Risk Notes Problem Hypercalcemia (24651464) Hypercalcemia (E 83.52) ActiveconfirmedProblemHistopathology finding (532462290)Unspecified abnormal finding in specimens from other organs, systems and tissues (R89.9)Active confirmedProblemGastroesophageal reflux disease (669927327)GERD (gastroesophageal reflux disease) (K21.9)ActiveconfirmedProblemWell adult (180733631)Well adult (Z00.00)ActiveconfirmedProblemDysphagia (83472725) Dysphagia (R13.10)ActiveconfirmedProblemLaboratory test result abnormal (183665799)Abnormal laboratory test (R89.9)ActiveconfirmedProblemHand laceration (S61.419A)ActiveconfirmedProblemHypercholesterolemia (23192248) Hypercholesterolemia (E78.00)ActiveconfirmedProblemCOVID-19 (226387362)COVID-19 (U07.1)Activeconfirmed Vital Signs Blood pressure diastolic 88 mm Hg 01/16/2025 Kefzkp41 in01/16/2025lood pressure ciukuzqq944 mm Hg01/16/20256970Sdkiah676 lbs 01/16/2025BMI33.72 kg/m201/16/2025 Procedures Procedure Date Ordered Date Performed Result Body Sit e EKG w Interp & Report - performed 01/16/2025 N/ASleep Study: Retitration BIPAP/CPAP01/16/2025N/A Encounters Encounter Location Date Provider Diagnosis [facility] [address] [place] [facility] [place] [place] [address] 01/16/2025 Raul Hoy Palpitations R00.2 ; Snoring R06.83 ; Well adult Z00.00 and Chest pain R07.9 [facility] [address] [place] [place] [place] [address] 01/16/2025 Raul Hoy GERD (gastroesophage al reflux disease) K21.9 [facility] [address] [place] [place] [place] [place] [address] 01/17/2025 Raul Hoy [facility] [place] [place] [place] [address] 01/18/2025[facility] [place] [place] [address]/[facility] [place] [place] [address]/[facility] [place] [place] [address]/[facility] [place] [place] [address]/[facility] [place] [place] [address]/ [facility] [place] [place] [address]/03/2024[facility] [place] [place] [address]/04/2024[facility] [place] [facility] [place] [address]/09/2024Doug HoyAbnormal laboratory test R89.9[facility] [place] [facility] [place] [address] 02/07/2025[facility] [place] [place] [address]/11/2024[facility] [place] [place] [address]/[facility] [facility] [place] [address]/Doug HoyHypercalcemia E83.52 and Thyroid lump E07.9 Assessments Encounter Date Diagnosis (ICD Code) Assessment Notes Treatment Notes Treatment Clinical Notes Section Notes 01/16/2025 Palpitations (ICD-10 - R00.2) needs Stress test - + FH CAD -01/16/2025Snoring (ICD-10 - R06.83)needs sleep stucy103/18/2024Well adult (ICD-10 - Z00.00)01/16/2025GERD (gastroesophageal reflux disease) (ICD-10 - K21.9)02/06/2025bnormal laboratory test (ICD-10 - R89.9)02/27/2025Hypercalcemia (ICD-10 - E83.52)02/27/2025Thyroid lump (ICD-10 - E07.9)01/16/2025hest pain (ICD-10 - R07.9)01/16/2025Other Discussed increasing physical exercise and continuing/implementing a healthier diet. Plan Of Treatment Pending Test Test Name Order Date CMP (COMPLETE METABOLIC PANEL) 4 CALCIUM, IONIZED 02/27/2025 HEMOGLOBIN A1C (GLYCO) 05/25/2023 HEMOGLOBIN A1C (GLYCO) 01/16/2025 INSULIN, TOTAL 01/16/2025 INSULIN, TOTAL 05/25/2023 LIPID PANEL (CHOL/TRIG/HDL/LDL) 01/17/20 LIPID PANEL (CHOL/TRIG/HDL/LDL) 05/25/19 24 CBC WITH DIFF (EXP 12/2024) 05/25/2023 PSA, PROSTATE-SPECIFIC ANTIGEN 4 URIC ACID 01/16/2025 EKG w Interp & Report - performed 2024 RHEUMATOID PANEL 01/16/2025 Sleep Study: Retitration BIPAP/CPAP 12/31 Treadmill Stress Test with Nuclear Imagi ng 01/16/2025 STOOL OCCULT BLOOD 01/16/2025 MRI Hip Arthrogram w/ Contrast Left 12/31 SED RATE WESTERGREN 01/16/2025 US THYROID 02/27/2025 THYROID PANEL (T4/TSH/FREE T3) XR HIP RT 2 3V W PELVIS 01/16/2025 PSA, SCREENING 01/16/2025 CMP (COMP MET MANUEL) w/eGFR CKD-EPI 2024 CBC WITH DIFF 01/16/2025 Next Appt Details Provider Name:Gab Cindy navarro, 03/07/2025 01:00:00 PM, [address], [place], [address], Insurance Providers Payer Name Payer Address Payer Phone Subscriber Number Group Number Insured Name Patient Relationship to Insured Coverage Start Date Coverage End Date YESI LEWIS [address] [place] [address] [id number] Chula Salazar - patient is the insured
--- OUTSIDE RECORDS SUMMARY | 2025-03-01 09:05 | XMS_ITS | Clinical Summary ---
Author Organization [facility] Address [address] [place] [address] Care Team Providers Care Plisse Machine Operator Name Role Phone Jude Matos MD Primary Care Provider [phone] Allergies No known active allergies Medications MedicationSigDispense [...] InformationValueDate RecordedSex Assigned at BirthNot on fileLegal LshAnfm1205/14/2022 6:52 PM EDTGender IdentityNot on fileSexual OrientationNot on file Last Filed Vital Signs Vital SignReadingTime TakenCommentsBlood Pressure--Pulse--Temperature-- Respiratory Rate--Oxygen Saturation--Inhaled Oxygen Concentration--Wpzrtm38.5 kg (215 lb)02/08/2024 4:12 PM ITDMzhjny580.8 cm (5' 10 )02/08/2024 4:12 PM ESTBody Mass Index30.8502/08/2024 4:12 PM EST Plan of Treatment Not on file Insurance * Guarantor: nAgel Salazar TypeRelation to PatientDate of PhoneBilling AddressPersonal/YeqildHiyq[birth year][address] [address] Care Teams Team MemberRelationshipSpecialtyStart Date Jude Matos MD PCP - GeneralFamily Medicine09/22/23
--- NOTE | 2025-03-01 09:07 | US_ITS ---
The [address] [address] Patient Name: KALLIE NICK MRN: [id number] date: 1980 Sex: M Assigned Patient Location: [place] Current Patient Location: [place] Accession/Order Number: [id number] Exam Date: 03/01/2025 09:08 Report Date: 03/01/2025 10:25 At the request of: EVELIO CHOUDHARY MD Procedure: US thyroid THYROID ULTRASOUND COMPARISON: None CLINICAL DATA: Thyroid lump The right thyroid lobe measures 4.3 x 1.2 x 1.7 cm . Left lobe measures 3.8 x 1.5 x 1.1 cm . Isthmus measures 4 mm. Thyroid echotexture is heterogeneous. There is also hyperemia. At the superior pole on the left, there is a subtle heterogeneous hypoechoic nodular area measuring 9 x 5 x 7 mm (TI-RADS 4). At the inferior pole, there is an isoechoic nodule with hypoechoic rim showing slightly lobulated contour measuring 9 x 10 x 7 mm (TI-RADS 4). No focal nodules were measured on the right. US/US thyroid IMPRESSION: HETEROGENEOUS HYPEREMIC THYROID. CORRELATION WITH LABORATORY DATA IS RECOMMENDED. LEFT THYROID NODULARITY. FOLLOW-UP IN ONE YEAR IS SUGGESTED. Impression dictated by: Susan Anguiano M.D. 03/01/2025 10:25 AM Dictation Location: [place] [address] Electronically authenticated by: [id number] Y Date: 03/01/2025 10:25
--- NOTE | 2025-03-01 09:35 | NM_ITS ---
Patient Name: KALLIE NICK MR#: [id number] : 1980 Exam Date: 03/01/2025 Ordering Doctor: DR EVELIO CHOUDHARY . RADIOLOGY REPORT PROCEDURE: NM COLLEEN PERF SPECT REST STR COMPARISON: None. INDICATIONS: CHEST PAIN TECHNIQUE: Exam Description: Stress/Rest one day protocol gated SPECT Rest Imagin.7 mCi Tc-99m Cardiolite IV on 03/01/2025 Stress Imaging 31.5 mCi Tc-99m Cardiolite IV on 03/01/2025 Exercise Protocol: [place] Heart Rate (bpm): Rest: 67 Max: 169 PMHR: 96 Blood Pressure: Rest: 110/78 Max: 194/104 Exercise Time: Minutes: 11 Seconds: 59 Stage Reached: Stage: 4 Mets 13.4 Symptoms: Rest and peak stress ECG findings were pending and the exercise portion of the study was pending per attending physician [facility] . For more details please see separate cardiac stress test report. FINDINGS: QUALITY OF STUDY: Good PERFUSION DEFECT: LOCATION: Mid and basal inferolateral SIZE: Medium SEVERITY: Mild TYPE: Fixed with adequate contractility and thickening consistent with diaphragmatic attenuation WALL MOTION: Normal LV SIZE: 129 m. TID / TCD: 0.8 LVEF: Calculated EF 68%. SUMMARY: Normal myocardial perfusion imaging study CONCLUSION: Normal nuclear myocardial perfusion stress images without evidence of ischemia or infarction Normal left ventricle systolic function, EF 68% No transient ischemic dilatation, TID 0.8 EKG portion of stress test is reported separately Dictated by: James Dodson MD on 03/03/2025 at 14:24 Approved by: James Dodson MD on 03/03/2025 at 14:31
--- NOTE | 2025-03-01 16:08 | PM.STRESS ---
Stress Test Stress Test Requesting physician: Jude Matos Procedure: This was a Treadmill stress test with myocardial perfusion imaging performed at the [facility] on 03/01/2025. Intravenous line was secured. The patient was attached to electrocardiographic monitoring. Baseline vital signs and ECG were obtained. The patient exercised on the treadmill according to the Jorgito protocol. Cardiolite was administered at peak exercise. The patient then went on to obtain myocardial perfusion imaging. Total exercise time was 11 minutes and 59 seconds total exercise time was 11 minutes and 59 seconds. Maximum workload was 13.4 METS. The patient completed stage IV of the Jorgito protocol. The test was stopped due to achieving target. Resting heart rate was 67 bpm and peak heart rate was 169 bpm representing 96% of maximum predicted heart rate. Resting blood pressure was 110/78 and peak blood pressure was 194/104. General Information: Reason for Stress Test: Chest pain. Cardiac History and Risk Factors: Hyperlipidemia. Resting 12 - Lead Electrocardiogram: Sinus rhythm. Stress Test: Protocol: Jorgito protocol treadmill exercise. Exercise Capacity: Exercise capacity. Blood Pressure Response: Resting normal blood pressure, appropriate blood pressure response to exercise. Rhythm: Sinus rhythm with no arrhythmia. ST - Response: No ischemic ST changes. Patient Response: No cardiac symptoms. Interpretation: 1. No evidence of ischemic ST changes seen with treadmill exercise. 2. Rodriguez treadmill Score of +12 is associated with low risk for long-term cardiac events. 3. Myocardial perfusion imaging will be reported separately.
== END 2025-03-01 09:03 | disposition home or self-care (01) ==
LOC: US 09:02
PROVIDERS: PCP Family Medicine; Visit Provider Family Medicine
DX: R07.9 Chest pain, unspecified (principal); E07.9 Disorder of thyroid, unspecified
CPT/HCPCS: 76536; 78452; A9500